=== PATIENT | male | born 1960 | race Caucasian/White ===

== ENCOUNTER 2018-12-12 00:13 | Inpatient (IN) | payer OTHER ==
[2018-12-12] MEDS ORDERED: NACL 0.9% 3 ML SYG IV (02:00)
[2018-12-12] MEDS ORDERED: morphine 2 MG INJ IV (02:00)
[2018-12-12] MEDS ORDERED: ACETAMINOPHEN 325 MG TAB PEG (02:00)
[2018-12-12] MEDS ORDERED: ONDANSETRON 4 MG INJ IV (02:00)
[2018-12-12] MEDS ORDERED: ALBUTEROL/IPRATROPIUM (NEB) 3 ML AMP HHN (02:00)
[2018-12-12] MEDS: DEXTROSE 5%-0.45% NACL 1,000 ML IV ×3 (02:26→20:22)
[2018-12-12] MEDS ORDERED: TETRAHYDROZOLINE 0.05% 15 ML OPH BOTH EYES (03:30)
[2018-12-12] MEDS ORDERED: CARBOXYMETHYLCELLULOSE 0.5% 0.4 ML OPH BOTH EYES (03:30)
[2018-12-12] MEDS ORDERED: FLUTICASONE 0.05% 16 GM NAS SPRAY NASAL (03:30)
[2018-12-12] MEDS: PANTOPRAZOLE 40 MG INJ IV (05:45)
[2018-12-12] MEDS ORDERED: PHENOL 1.4% SOLN 180 ML BTL MT (06:30)
[2018-12-12 07:21] LABS: ADD MAN DIFF? NO
[2018-12-12 07:25] LABS: ABNORMAL IP MESSAGE 1; BASOPHIL # 0.1 10^3/ul (0.0-0.1); BASOPHILS % 0.8 % (0.0-2.0); EOSINOPHILS # 0.1 10^3/ul (0.0-0.5); EOSINOPHILS % 0.9 % (0.0-7.0); HEMATOCRIT 24.6 % (42.0-52.0); LYMPHOCYTES # 1.6 10^3/ul (0.8-2.9); LYMPHOCYTES % 17.8 % (15.0-51.0); MEAN CORPUSCULAR HEMOGLOBIN 20.1 pg (29.0-33.0); MEAN CORPUSCULAR HGB CONC 28.5 g/dl (32.0-37.0); MEAN CORPUSCULAR VOLUME 70.7 fl (82.0-101.0); MEAN PLATELET VOLUME 8.6 fl (7.4-10.4); MONOCYTE # 0.7 10^3/ul (0.3-0.9); MONOCYTES % 8.1 % (0.0-11.0); NEUTROPHIL # 6.2 10^3/ul (1.6-7.5); NEUTROPHILS % 71.7 % (39.0-77.0); PLATELET COUNT 667 10^3/UL (140-415); POSITIVE DIFF @See below; RED BLOOD COUNT 3.48 10^6/ul (4.70-6.10); RED CELL DISTRIBUTION WIDTH 18.6 % (11.5-14.5)
[2018-12-12 07:25] LABS: WHITE BLOOD COUNT 8.7 10^3/ul (4.8-10.8)
[2018-12-12 07:39] LABS: IRON 11 ug/dl (35-150)
[2018-12-12 07:42] LABS: ALANINE AMINOTRANSFERASE 18 IU/L (13-69); ALBUMIN/GLOBULIN RATIO 0.73; ALKALINE PHOSPHATASE 249 IU/L (42-121); ANION GAP 9 (5-13); ASPARTATE AMINO TRANSFERASE 22 IU/L (15-46); BILIRUBIN,INDIRECT 0.3 mg/dl (0-1.1); BILIRUBIN,TOTAL 0.3 mg/dl (0.2-1.3); BLOOD UREA NITROGEN 10 mg/dl (7-20); CALCIUM 9.2 mg/dl (8.4-10.2); CARBON DIOXIDE 26 mmol/L (21-31); CHLORIDE 103 mmol/L (97-110); CHOL/HDL RATIO 3.4 RATIO; CHOLESTEROL 123 mg/dl (100-200); CREATININE 0.71 mg/dl (0.61-1.24); Estimated GFR > 60 mL/min (>60); GLUCOSE 112 mg/dl (70-220); HDL CHOLESTEROL 36 mg/dl (30-78); LACTATE DEHYDROGENASE 388 IU/L (313-618); LDL CHOLESTEROL,CALCULATED 65 mg/dl; MAGNESIUM 1.7 mg/dl (1.7-2.5); PHOSPHORUS 4.4 mg/dl (2.5-4.9); POTASSIUM 3.9 mmol/L (3.5-5.1); SODIUM 138 mmol/L (135-144); TOTAL PROTEIN 7.1 g/dl (6.1-8.1); TRIGLYCERIDES 109 mg/dl (0-149)
[2018-12-12 07:48] LABS: % IRON SATURATION 5 % SAT (22-52); TOTAL IRON BINDING CAPACITY 226 ug/dl (241-421)
[2018-12-12 08:01] LABS: ANISOCYTOSIS 2+ (0-0); BAND NEUTROPHILS #M 0.4 10^3/ul (0.0-0.6); BAND NEUTROPHILS % (M) 5 % (0-4); BASOPHIL #M 0.2 10^3/ul (0.0-0.0); BASOPHILS % (M) 3 % (0-2); EOSINOPHILS % (M) 2 % (0-7); GIANT THROMBO% (M) 4 % (0-0); LYMPHOCYTES #M 1.6 10^3/ul (0.8-2.9); LYMPHOCYTES % (M) 19 % (15-51); MONOCYTES % (M) 1 % (0-11); PLATELET ESTIMATE INCREASED; POIKILOCYTOSIS 1+ (0-0); POLYCHROMASIA 3+ (0-0); REACTIVE LYMPHOCYTES% (M) 1 % (0-0); SEGMENTED NEUTROPHILS (M) % 69 % (39-77)
[2018-12-12 08:48] LABS: FOLATE 7.5 ng/ml (2.8-20.0)
[2018-12-12] MEDS: FERROUS SULFATE (EC) 325 MG TAB PO ×2 (09:00→13:00)
[2018-12-12] MEDS: ASCORBIC ACID 500 MG TAB GTB (09:10)
[2018-12-12] MEDS: MULTIVITAMINS 30 ML CUP GTB (09:10)
[2018-12-12] MEDS: CYANOCOBALAMIN 500 MCG TAB GTB (09:10)
[2018-12-12 10:38] LABS: IMMEDIATE SPIN CROSSMATCH 1 2
[2018-12-12 13:02] LABS: OCCULT BLOOD STOOL POSITIVE (NEGATIVE)
[2018-12-12] MEDS ORDERED: FERROUS SULFATE 60 MG/ML 5ML CUP PEG (21:00)
[2018-12-13 01:15] LABS: PROTIME 13.3 Sec (11.9-14.9)
[2018-12-13 01:16] LABS: PARTIAL THROMBOPLASTIN TIME 34.7 Sec (23.0-35.0)
[2018-12-13] MEDS: DEXTROSE 5%-0.45% NACL 1,000 ML IV ×2 (05:34→17:08)
[2018-12-13] MEDS: PANTOPRAZOLE 40 MG INJ IV (05:34)
[2018-12-13 06:28] LABS: ADD MAN DIFF? NO
[2018-12-13 06:33] LABS: BASOPHIL # 0.1 10^3/ul (0.0-0.1); BASOPHILS % 0.9 % (0.0-2.0); EOSINOPHILS # 0.1 10^3/ul (0.0-0.5); EOSINOPHILS % 0.7 % (0.0-7.0); HEMATOCRIT 29.2 % (42.0-52.0); HEMOGLOBIN 8.8 g/dl (14.0-18.0); LYMPHOCYTES # 1.4 10^3/ul (0.8-2.9); LYMPHOCYTES % 15.1 % (15.0-51.0); MEAN CORPUSCULAR HEMOGLOBIN 21.7 pg (29.0-33.0); MEAN CORPUSCULAR HGB CONC 30.1 g/dl (32.0-37.0); MEAN CORPUSCULAR VOLUME 71.9 fl (82.0-101.0); MEAN PLATELET VOLUME 8.4 fl (7.4-10.4); MONOCYTE # 0.7 10^3/ul (0.3-0.9); MONOCYTES % 7.9 % (0.0-11.0); NEUTROPHILS % 74.8 % (39.0-77.0); PLATELET COUNT 590 10^3/UL (140-415); RED BLOOD COUNT 4.06 10^6/ul (4.70-6.10)
[2018-12-13 06:33] LABS: WHITE BLOOD COUNT 9.4 10^3/ul (4.8-10.8)
[2018-12-13 06:44] LABS: ANION GAP 9 (5-13); BLOOD UREA NITROGEN 8 mg/dl (7-20); CALCIUM 9.5 mg/dl (8.4-10.2); CARBON DIOXIDE 25 mmol/L (21-31); CHLORIDE 102 mmol/L (97-110); CREATININE 0.76 mg/dl (0.61-1.24); Estimated GFR > 60 mL/min (>60); GLUCOSE 108 mg/dl (70-220); MAGNESIUM 1.7 mg/dl (1.7-2.5); PHOSPHORUS 4.4 mg/dl (2.5-4.9); POTASSIUM 3.6 mmol/L (3.5-5.1); SODIUM 136 mmol/L (135-144)
[2018-12-13 08:05] LABS: CARCINOEMBRYONIC ANTIGEN 40.7 ng/ml (0.0-5.0)
[2018-12-13] MEDS: CYANOCOBALAMIN 500 MCG TAB GTB (09:03)
[2018-12-13] MEDS: ASCORBIC ACID 500 MG TAB GTB (09:03)
[2018-12-13] MEDS: MULTIVITAMINS 30 ML CUP GTB (09:03)
[2018-12-13] MEDS: SOD FERRIC GLUC COMPLX 125 MG in SOD CHLORIDE 0.9% 100 ML IVPB (12:42)
[2018-12-14] MEDS: DEXTROSE 5%-0.45% NACL 1,000 ML IV ×3 (03:55→17:06)
[2018-12-14 06:04] LABS: ADD MAN DIFF? NO
[2018-12-14] MEDS: LANSOPRAZOLE 30 MG CAP GTB (06:10)
[2018-12-14 06:17] LABS: BASOPHIL # 0.1 10^3/ul (0.0-0.1); BASOPHILS % 0.5 % (0.0-2.0); EOSINOPHILS # 0.1 10^3/ul (0.0-0.5); EOSINOPHILS % 0.8 % (0.0-7.0); HEMATOCRIT 29.5 % (42.0-52.0); HEMOGLOBIN 8.9 g/dl (14.0-18.0); LYMPHOCYTES # 1.4 10^3/ul (0.8-2.9); MEAN CORPUSCULAR HEMOGLOBIN 22.1 pg (29.0-33.0); MEAN CORPUSCULAR HGB CONC 30.2 g/dl (32.0-37.0); MEAN CORPUSCULAR VOLUME 73.2 fl (82.0-101.0); MEAN PLATELET VOLUME 8.6 fl (7.4-10.4); MONOCYTE # 0.8 10^3/ul (0.3-0.9); MONOCYTES % 7.8 % (0.0-11.0); NEUTROPHIL # 7.7 10^3/ul (1.6-7.5); NEUTROPHILS % 76.4 % (39.0-77.0); PLATELET COUNT 616 10^3/UL (140-415); RED BLOOD COUNT 4.03 10^6/ul (4.70-6.10); RED CELL DISTRIBUTION WIDTH 19.2 % (11.5-14.5)
[2018-12-14 07:34] LABS: ANION GAP 8 (5-13); BLOOD UREA NITROGEN 6 mg/dl (7-20); CARBON DIOXIDE 26 mmol/L (21-31); CHLORIDE 104 mmol/L (97-110); CREATININE 0.81 mg/dl (0.61-1.24); Estimated GFR > 60 mL/min (>60); GLUCOSE 109 mg/dl (70-220); SODIUM 138 mmol/L (135-144)
[2018-12-14] MEDS: MULTIVITAMINS 30 ML CUP GTB (08:40)
[2018-12-14] MEDS: CYANOCOBALAMIN 500 MCG TAB GTB (08:40)
[2018-12-14] MEDS: ASCORBIC ACID 500 MG TAB GTB (08:40)
[2018-12-14] MEDS: SOD FERRIC GLUC COMPLX 125 MG in SOD CHLORIDE 0.9% 100 ML IVPB (13:05)
[2018-12-15] MEDS: LANSOPRAZOLE 30 MG CAP GTB (05:18)
[2018-12-15] MEDS: MULTIVITAMINS 30 ML CUP GTB (08:17)
[2018-12-15] MEDS: ASCORBIC ACID 500 MG TAB GTB (08:18)
[2018-12-15] MEDS: CYANOCOBALAMIN 500 MCG TAB GTB (08:18)
[2018-12-15] MEDS: SOD FERRIC GLUC COMPLX 125 MG in SOD CHLORIDE 0.9% 100 ML IVPB (12:13)
[2018-12-15] MEDS: DEXTROSE 5%-0.45% NACL 1,000 ML IV (23:47)
[2018-12-16] MEDS: LANSOPRAZOLE 30 MG CAP GTB (05:07)
[2018-12-16] MEDS: ASCORBIC ACID 500 MG TAB GTB (09:00)
[2018-12-16] MEDS: CYANOCOBALAMIN 500 MCG TAB GTB (09:00)
[2018-12-16] MEDS: MULTIVITAMINS 30 ML CUP GTB (09:00)
[2018-12-16] MEDS: SOD CHLORIDE 0.9% 100 ML (11:40)
[2018-12-16] MEDS: IOHEXOL 100 ML (11:40)
[2018-12-16] MEDS: IOHEXOL 350MG/ML 50 ML BTL (11:40)
[2018-12-16] MEDS: SOD FERRIC GLUC COMPLX 125 MG in SOD CHLORIDE 0.9% 100 ML IVPB (13:17)
[2018-12-16] MEDS ORDERED: LIDOCAINE 1% (MDV) 20 ML INJ (13:43)
[2018-12-16] MEDS ORDERED: LIDOCAINE 100 MG SYRINGE (14:55)
[2018-12-16] MEDS ORDERED: PROPOFOL 20 ML (14:55)
[2018-12-16] MEDS: DEXTROSE 5%-0.45% NACL 1,000 ML IV (17:18)
[2018-12-17] MEDS: DEXTROSE 5%-0.45% NACL 1,000 ML IV ×2 (02:40→06:32)
[2018-12-17 05:24] LABS: ADD MAN DIFF? NO
[2018-12-17 05:27] LABS: WHITE BLOOD COUNT 9.5 10^3/ul (4.8-10.8)
[2018-12-17 05:27] LABS: BASOPHIL # 0.1 10^3/ul (0.0-0.1); BASOPHILS % 0.5 % (0.0-2.0); EOSINOPHILS # 0.1 10^3/ul (0.0-0.5); EOSINOPHILS % 1.2 % (0.0-7.0); HEMATOCRIT 28.1 % (42.0-52.0); HEMOGLOBIN 8.5 g/dl (14.0-18.0); LYMPHOCYTES # 1.6 10^3/ul (0.8-2.9); LYMPHOCYTES % 17.1 % (15.0-51.0); MEAN CORPUSCULAR HEMOGLOBIN 22.3 pg (29.0-33.0); MEAN CORPUSCULAR HGB CONC 30.2 g/dl (32.0-37.0); MEAN CORPUSCULAR VOLUME 73.6 fl (82.0-101.0); MEAN PLATELET VOLUME 8.6 fl (7.4-10.4); MONOCYTE # 0.9 10^3/ul (0.3-0.9); MONOCYTES % 9.7 % (0.0-11.0); NEUTROPHIL # 6.7 10^3/ul (1.6-7.5); NEUTROPHILS % 70.9 % (39.0-77.0); PLATELET COUNT 509 10^3/UL (140-415); RED BLOOD COUNT 3.82 10^6/ul (4.70-6.10); RED CELL DISTRIBUTION WIDTH 20.5 % (11.5-14.5)
[2018-12-17] MEDS: LANSOPRAZOLE 30 MG CAP GTB (05:31)
[2018-12-17 05:51] LABS: ANION GAP 6 (5-13); BLOOD UREA NITROGEN 9 mg/dl (7-20); CARBON DIOXIDE 29 mmol/L (21-31); CHLORIDE 101 mmol/L (97-110); CREATININE 0.76 mg/dl (0.61-1.24); Estimated GFR > 60 mL/min (>60); GLUCOSE 127 mg/dl (70-220); POTASSIUM 4.3 mmol/L (3.5-5.1); SODIUM 136 mmol/L (135-144)
[2018-12-17] MEDS: ASCORBIC ACID 500 MG TAB GTB (09:18)
[2018-12-17] MEDS: MULTIVITAMINS 30 ML CUP GTB (09:18)
[2018-12-17] MEDS: CYANOCOBALAMIN 500 MCG TAB GTB (09:18)
[2018-12-17] MEDS: SOD FERRIC GLUC COMPLX 125 MG in SOD CHLORIDE 0.9% 100 ML IVPB (13:34)
== END 2018-12-17 16:00 | DRG 435 ==
LOC: PP2 00:13
PROVIDERS: Pediatrics Neonatal-Perinatal Medicine
PROC: 0FD13ZX Extraction of Right Lobe Liver, Percutaneous Approach, Diagnostic (ICD-10-PCS; principal; 2018-12-16)
DX: C78.7 Secondary malignant neoplasm of liver and intrahepatic bile duct (principal); E43 Unspecified severe protein-calorie malnutrition; C79.89 Secondary malignant neoplasm of other specified sites; G93.49 Other encephalopathy; Z68.1 Body mass index [BMI] 19.9 or less, adult; D63.0 Anemia in neoplastic disease; D50.0 Iron deficiency anemia secondary to blood loss (chronic); Z85.028 Personal history of other malignant neoplasm of stomach; Z86.73 Personal history of transient ischemic attack (TIA), and cerebral infarction without residual deficits; Z93.2 Ileostomy status
CPT/HCPCS: 36430; 74170; 74176; 77012; 80048; 80053; 80061; 82270; 82378; 82607; 82728; 82746; 83036; 83540; 83615; 83735; 84100; 84443; 85025; 85610; 85730; 86850; 86900; 86901; 86920; 87081; 88307; 88313

== ENCOUNTER 2019-01-25 17:03 | Emergency (ER) | payer OTHER ==
[2019-01-25 18:00] LABS: ABNORMAL IP MESSAGE 1; HEMATOCRIT 29.9 % (42.0-52.0); HEMOGLOBIN 8.2 g/dl (14.0-18.0); MEAN CORPUSCULAR HEMOGLOBIN 23.6 pg (29.0-33.0); MEAN CORPUSCULAR HGB CONC 27.4 g/dl (32.0-37.0); MEAN CORPUSCULAR VOLUME 85.9 fl (82.0-101.0); MEAN PLATELET VOLUME 9.2 fl (7.4-10.4); NUCLEATED RED BLOOD CELLS% 0.1 /100WBC (0.0-0.0); PLATELET COUNT 774 10^3/UL (140-415); POSITIVE DIFF @See below; RED BLOOD COUNT 3.48 10^6/ul (4.70-6.10); RED CELL DISTRIBUTION WIDTH 24.6 % (11.5-14.5)
[2019-01-25 18:16] LABS: ADD MAN DIFF? YES; PATH REVIEW? YES
[2019-01-25 18:23] LABS: ANION GAP 6 (5-13); BLOOD UREA NITROGEN 17 mg/dl (7-20); CALCIUM 9.6 mg/dl (8.4-10.2); CARBON DIOXIDE 28 mmol/L (21-31); CHLORIDE 101 mmol/L (97-110); CREATININE 0.65 mg/dl (0.61-1.24); Estimated GFR > 60 mL/min (>60); GLUCOSE 107 mg/dl (70-220); POTASSIUM 4.3 mmol/L (3.5-5.1); SODIUM 135 mmol/L (135-144)
[2019-01-25 20:29] LABS: ANISOCYTOSIS 1+ (0-0); BAND NEUTROPHILS #M 0.2 10^3/ul (0.0-0.6); BAND NEUTROPHILS % (M) 2 % (0-4); LYMPHOCYTES #M 1.2 10^3/ul (0.8-2.9); LYMPHOCYTES % (M) 9 % (15-51); MONOCYTE #M 0.4 10^3/ul (0.3-0.9); MONOCYTES % (M) 3 % (0-11); PLATELET ESTIMATE INCREASED; POIKILOCYTOSIS 1+ (0-0); POLYCHROMASIA 2+ (0-0); REACTIVE LYMPHOCYTES #M 1.1 10^3/ul (0.0-0.0); REACTIVE LYMPHOCYTES% (M) 8 % (0-0); SEG NEUT #M 10.9 10^3/ul (1.6-7.5); SEGMENTED NEUTROPHILS (M) % 78 % (39-77); SMUDGE%M 16 % (0-0)
== END 2019-01-25 22:45 | disposition home or self-care (01) ==
LOC: E/R 17:03
DX: D64.9 Anemia, unspecified (principal); C16.9 Malignant neoplasm of stomach, unspecified; I25.10 Atherosclerotic heart disease of native coronary artery without angina pectoris; Z93.2 Ileostomy status
CPT/HCPCS: 80048; 85025; 86850; 86900; 86901; 99283

== ENCOUNTER 2019-02-13 11:15 | Emergency (ER) | payer OTHER ==
[2019-02-13 12:01] LABS: ADD MAN DIFF? NO
[2019-02-13] MEDS: PANTOPRAZOLE 40 MG INJ IV (12:04)
[2019-02-13 12:10] LABS: BASOPHIL # 0.1 10^3/ul (0.0-0.1); BASOPHILS % 0.3 % (0.0-2.0); EOSINOPHILS # 0.1 10^3/ul (0.0-0.5); EOSINOPHILS % 0.7 % (0.0-7.0); HEMATOCRIT 26.9 % (42.0-52.0); LYMPHOCYTES # 1.8 10^3/ul (0.8-2.9); LYMPHOCYTES % 10.7 % (15.0-51.0); MEAN CORPUSCULAR HEMOGLOBIN 28.4 pg (29.0-33.0); MEAN CORPUSCULAR HGB CONC 29.7 g/dl (32.0-37.0); MEAN CORPUSCULAR VOLUME 95.4 fl (82.0-101.0); MEAN PLATELET VOLUME 11.7 fl (7.4-10.4); MONOCYTE # 0.6 10^3/ul (0.3-0.9); MONOCYTES % 3.6 % (0.0-11.0); NEUTROPHIL # 13.6 10^3/ul (1.6-7.5); NEUTROPHILS % 83.8 % (39.0-77.0); NUCLEATED RED BLOOD CELLS # 0.1 10^3/ul (0.0-0.0); NUCLEATED RED BLOOD CELLS% 0.8 /100WBC (0.0-0.0); PLATELET COUNT 478 10^3/UL (140-415); RED BLOOD COUNT 2.82 10^6/ul (4.70-6.10); RED CELL DISTRIBUTION WIDTH 19.4 % (11.5-14.5)
[2019-02-13 12:10] LABS: WHITE BLOOD COUNT 16.3 10^3/ul (4.8-10.8)
[2019-02-13 12:19] LABS: ALANINE AMINOTRANSFERASE 65 IU/L (13-69); ALBUMIN 2.4 g/dl (3.3-4.9); ALBUMIN/GLOBULIN RATIO 0.52; ALKALINE PHOSPHATASE 549 IU/L (42-121); ANION GAP 2 (5-13); ASPARTATE AMINO TRANSFERASE 72 IU/L (15-46); BILIRUBIN,INDIRECT 0.6 mg/dl (0-1.1); BILIRUBIN,TOTAL 1.5 mg/dl (0.2-1.3); BLOOD UREA NITROGEN 25 mg/dl (7-20); CALCIUM 8.5 mg/dl (8.4-10.2); CARBON DIOXIDE 31 mmol/L (21-31); CHLORIDE 118 mmol/L (97-110); Estimated GFR > 60 mL/min (>60); GLUCOSE 121 mg/dl (70-220); POTASSIUM 4.4 mmol/L (3.5-5.1); SODIUM 151 mmol/L (135-144)
[2019-02-13 12:31] LABS: TROPONIN-I < 0.012 ng/ml (0.000-0.120)
[2019-02-13 12:37] LABS: INR 1.08; PROTIME 14.1 Sec (11.9-14.9); PT RATIO 1.1
[2019-02-13 12:38] LABS: PARTIAL THROMBOPLASTIN TIME 29.8 Sec (23.0-35.0)
[2019-02-13] MEDS: SOD CHLORIDE 0.9% 1,000 ML IV (14:44)
== END 2019-02-13 20:05 | disposition home or self-care (01) ==
LOC: E/R 11:15
DX: E86.0 Dehydration (principal); D72.829 Elevated white blood cell count, unspecified; E87.0 Hyperosmolality and hypernatremia; E86.1 Hypovolemia; D64.9 Anemia, unspecified; D47.3 Essential (hemorrhagic) thrombocythemia; K76.9 Liver disease, unspecified; C78.89 Secondary malignant neoplasm of other digestive organs; I25.10 Atherosclerotic heart disease of native coronary artery without angina pectoris
CPT/HCPCS: 36415; 80053; 84484; 85025; 85610; 85730; 86850; 86900; 86901; 93005; 96374; 99284-25